=== PATIENT | female | born 1995 | race African-American/Black ===

== ENCOUNTER 2021-11-19 05:38 | Emergency (ER) | payer OTHER ==
[~2021-11-19] VITALS: Ht 162.6 cm; Wt 54.4 kg
--- NOTE | ~2021-11-19 | EMS ---
[place] [address] EMS Patient Care Report Name: THALIA NEVAREZ Room #: DEP SUSIE Tipton#: [id number] Admission: 11/19/21 Attend Phys: Discharge: 11/19/21 Date of : [birth year] Report #: [id number] THIS REPORT FOR: //name// Report Transmitted: 11/20/2021 11:11 EMS Care Summary [place], [place]/[facility] Incident [id number] @ 11/19/2021 05:10 Incident Location [address] [place] [address] Patient CYRIL NEVAREZ Female, 26 Years 1995 Patient Address [address] [place] [address] Patient History Other,Novel Coronavirus (COVID-19), Patient Allergies No known allergies, Patient Medications Doxycycline, Chief Complaint N/V/D Disposition Transported No Lights/[place] Dispatch Reason Sick Person Transported To [facility] Narrative RESPONDED TO SICK AT APARTMENT. UPON ARRIVAL PT FOUND STANDING IN BATHROOM ALERT AND ORIENTED. PT REPORTS N/V/D SINCE SHE LEFT [facility] LAST NIGHT. PT [address] [address] EMS Patient Care Report Name: THALIA NEVAREZ Room #: DEP SUSIE Tipton#: [id number] Admission: 11/19/21 Attend Phys: Discharge: 11/19/21 Date of : [birth year] Report #: [id number] REPORTS FEVER AND SORE THROAT INITIALLY WHEN SHE WENT TO [facility]. PT BELIEVES SHE IS HAVING REACTION TO [place] SHOT GIVEN TO HER. PT WALKS TO [facility] AND [facility] APPLIED. PT VITALS OBTAINED. PT TRANSPORTED TO [facility] WITH NO CHANGES. PT WALKS TO ED RM 9 AND REPORT GIVEN TO NURSE. Initial Vitals @05:24P: 76,R: 18,BP: 129/93,Pain: 0/10,GCS: 15,CO: 0,SpO2: 99,Revised Trauma: 12, @05:30P: 77,R: 18,BP: 140/78,GCS: 15,CO: 5,SpO2: 100,Revised Trauma: 12, Assessments @05:20MENTAL:Event Oriented,Time Oriented,Person Oriented,Place Oriented,SKIN:HEENT:Head/Face: No Abnormalities,Neck/Airway: No Abnormalities,LUNG SOUNDS:General: Vomiting,General: Nausea,General: Diarrhea,Left Upper: No Abnormalities,Right Upper: No Abnormalities,Left Lower: No Abnormalities,Right Lower: No Abnormalities,ABDOMEN:General: Vomiting,General: Nausea,General: Diarrhea,Left Upper: No Abnormalities,Right Upper: No Abnormalities,Left Lower: No Abnormalities,Right Lower: No Abnormalities,PELVIS//GI:No Abnormalities,EXTREMITIES:Left Arm: No Abnormalities,Right Arm: No Abnormalities,Left Leg: No Abnormalities,Right Leg: No Abnormalities,PULSE:NEURO: Impression Vomiting Procedures @05:20 ALS Assessment Response: UnchangedSucceeded Timeline 05:07,Call Received 05:07,Dispatch Notified 05:10,Dispatched 05:13,En Route 05:18,On Scene 05:20,At Patient 05:20,ALS Assessment,Response: UnchangedSucceeded, 05:24,BP: 129/93 M,PULSE: 76,RR: 18 R,SPO2: 99 Ox,ETCO2: ,BG: ,PAIN: 0,GCS: 15, 05:25,Depart Scene 05:30,BP: 140/78 M,PULSE: 77,RR: 18 R,SPO2: 100 Ox,ETCO2: ,BG: ,PAIN: ,GCS: 15, 05:40,At Destination 05:50,Call Closed Disclaimer v1.1 Copyright 2021 [employer] This EMS Care Summary contains data elements from the applicable legal record [address] [address] EMS Patient Care Report Name: THALIA NEVAREZ Room #: DEP SUSIE Tipton#: [id number] Admission: 11/19/21 Attend Phys: Discharge: 11/19/21 Date of : [birth year] Report #: [id number] (which may be displayed differently). It is designed to provide pertinent information for the following purposes: continuity of care, clinical quality, and state data reporting. The complete legal record is available to ED staff and administrators of the receiving hospital in [employer] Patient Tracker. All data is provided "as is."
--- NOTE | ~2021-11-19 | EMS ---
[address] [address] EMS Patient Care Report Name: THAILA NEVAREZ Room #: PRE M.R.#: [id number] Admission: Attend Phys: Discharge: Date of : [birth year] Report #: [id number] THIS REPORT FOR: //name// Report Transmitted: 11/19/2021 05:51 EMS Care Summary [place], [place]/[facility] Incident [phone] @ 11/19/2021 05:10 Incident Location [address] [place] [address] Patient CYRIL NEVAREZ Female, 26 Years 1995 Patient Address [address] [place], [place] [id number] Patient History Other,Novel Coronavirus (COVID-19), Patient Allergies No known allergies, Patient Medications Doxycycline, Chief Complaint N/V/D Disposition Transported No Lights/[place] Dispatch Reason Sick Person Transported To [facility] Narrative RESPONDED TO SICK AT APARTMENT. UPON ARRIVAL PT FOUND STANDING IN BATHROOM ALERT AND ORIENTED. PT REPORTS N/V/D SINCE SHE LEFT [facility] LAST NIGHT. PT [address] [address] EMS Patient Care Report Name: THALIA NEVAREZ Room #: PRE MDarron.#: [id number] Admission: Attend Phys: Discharge: Date of : [birth year] Report #: [id number] REPORTS FEVER AND SORE THROAT INITIALLY WHEN SHE WENT TO [facility]. PT BELIEVES SHE IS HAVING REACTION TO [place] SHOT GIVEN TO HER. [facility]. PT VITALS OBTAINED. PT TRANSPORTED TO [facility] WITH NO CHANGES. PT WALKS TO ED RM 9 AND REPORT GIVEN TO NURSE. Initial Vitals @05:24P: 76,R: 18,BP: 129/93,Pain: 0/10,GCS: 15,CO: 0,SpO2: 99,Revised Trauma: 12, @05:30P: 77,R: 18,BP: 140/78,GCS: 15,CO: 5,SpO2: 100,Revised Trauma: 12, Assessments @05:20MENTAL:Place Oriented,Person Oriented,Time Oriented,Event Oriented,SKIN:HEENT:Head/Face: No Abnormalities,Neck/Airway: No Abnormalities,LUNG SOUNDS:General: Diarrhea,General: Nausea,General: Vomiting,Left Upper: No Abnormalities,Right Upper: No Abnormalities,Left Lower: No Abnormalities,Right Lower: No Abnormalities,ABDOMEN:General: Diarrhea,General: Nausea,General: Vomiting,Left Upper: No Abnormalities,Right Upper: No Abnormalities,Left Lower: No Abnormalities,Right Lower: No Abnormalities,PELVIS//GI:No Abnormalities,EXTREMITIES:Left Arm: No Abnormalities,Right Arm: No Abnormalities,Left Leg: No Abnormalities,Right Leg: No Abnormalities,PULSE:NEURO: Impression Vomiting Procedures @05:20 ALS Assessment Response: UnchangedSucceeded Timeline 05:07,Call Received 05:07,Dispatch Notified 05:10,Dispatched 05:13,En Route 05:18,On Scene 05:20,At Patient 05:20,ALS Assessment,Response: UnchangedSucceeded, 05:24,BP: 129/93 M,PULSE: 76,RR: 18 R,SPO2: 99 Ox,ETCO2: ,BG: ,PAIN: 0,GCS: 15, 05:25,Depart Scene 05:30,BP: 140/78 M,PULSE: 77,RR: 18 R,SPO2: 100 Ox,ETCO2: ,BG: ,PAIN: ,GCS: 15, 05:40,At Destination 05:50,Call Closed Disclaimer v1.1 Copyright 2021 [employer] This EMS Care Summary contains data elements from the applicable legal record [facility] [address] [place] [address] EMS Patient Care Report Name: ROQUESTEPHANIEWOJCIECH Room #: PRE M.R.#: [id number] Admission: Attend Phys: Discharge: Date of : [birth year] Report #: [id number] (which may be displayed differently). It is designed to provide pertinent information for the following purposes: continuity of care, clinical quality, and state data reporting. The complete legal record is available to ED staff and administrators of the receiving hospital in [employer] Patient Tracker. All data is provided "as is."
[2021-11-19 06:34] LABS: ABSOLUTE NEUTROPHILS 13.3 thou/uL (1.4-8.2); BASOPHILS 0.4 % (0.0-2.0); HEMATOCRIT 37.7 % (37.0-47.0); HEMOGLOBIN 12.2 gm/dL (12.0-15.0); LYMPHOCYTES 4.5 % (24.0-44.0); MCH 28.2 pg (26.0-34.0); MCHC 32.4 g/dL (28.0-37.0); MONOCYTES 7.7 % (1.0-8.0); PLATELET COUNT 231 thou/uL (150-400); POLYS 87.4 % (36.0-66.0); RBC 4.33 mil/uL (4.20-5.00); RDW 14.9 % (10.5-14.5); WBC 15.2 thou/uL (4.0-11.0)
[2021-11-19 06:38] LABS: CALCIUM 9.5 mg/dL (8.5-10.1); CREATININE 1.1 mg/dL (0.6-1.0); POTASSIUM 3.4 mmol/L (3.5-5.1)
[2021-11-19 06:44] LABS: ALBUMIN 3.8 g/dL (3.4-5.0); TOTAL BILIRUBIN 0.6 mg/dL (0.2-1.0); TOTAL PROTEIN 8.2 g/dL (6.4-8.2)
[2021-11-19] MEDS ORDERED: ZOFRAN ODT4 MG PO (10:05)
[2021-11-19] MEDS ORDERED: IBUPROFEN 800800 MG PO (10:05)
[2021-11-19] MEDS ORDERED: PENICILLIN VK500 M1 PO (10:05)
[2021-11-19 10:25] VITALS: BP 138/88
== END 2021-11-19 10:26 | disposition home or self-care (01) ==
LOC: ER 05:38
PROVIDERS: Emergency Medicine
DX: J02.9 Acute pharyngitis, unspecified (principal); Z20.822 Contact with and (suspected) exposure to COVID-19; R11.2 Nausea with vomiting, unspecified; N17.9 Acute kidney failure, unspecified; F12.90 Cannabis use, unspecified, uncomplicated